=== PATIENT | male | born 2000 | race Caucasian/White ===

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

== ENCOUNTER → 2021-01-20 | Outpatient (CLI) | payer OTHER | END | disposition home or self-care (01) | LOC: RAD 09:27 | PROVIDERS: ATTEND Nurse Practitioner Family | DX: M54.5 Low back pain (principal) ==

== ENCOUNTER 2023-06-05 12:02 | Emergency (ER) | payer OTHER ==
[~2023-06-05] VITALS: Ht 175.2 cm; Wt 77.1 kg
[2023-06-05] MEDS ORDERED: TRAZODONE50 MG PO (12:43)
[2023-06-05] MEDS ORDERED: ESCITALOPRAM OX10 MG PO (12:43)
[2023-06-05] MEDS ORDERED: AMOX-CLAV 875-1 EACH PO (16:22)
== END 2023-06-05 17:01 | disposition home or self-care (01) ==
LOC: ED 12:02
DX: H66.93 Otitis media, unspecified, bilateral (principal); K08.89 Other specified disorders of teeth and supporting structures; J02.9 Acute pharyngitis, unspecified; J45.909 Unspecified asthma, uncomplicated; Z20.822 Contact with and (suspected) exposure to COVID-19; Z88.8 Allergy status to other drugs, medicaments and biological substances; Z87.891 Personal history of nicotine dependence

== ENCOUNTER → 2023-09-06 | Day surgery (SDC) | payer OTHER ==
[~2023-09-06] VITALS: Ht 175.2 cm; Wt 79.4 kg
[~2023-09-06] MED LIST changes: +AMOX-CLAV 500-1 EACH PO; +AMOX-CLAV 875-1 EACH PO; +BUPIVACAINE 0.5% 50 ML VIAL ONE; +ESCITALOPRAM OX10 MG PO; +HYDROCODONE-AC1 EAC1 PO; +HYDROmorphONE Hydrochloride 1 MG/ML SYR IV ONE; +HYDROmorphONE Hydrochloride 1 ML IV ONE; +Lactated Ringer's Solution 1,000 ML IV ONE; +Midazolam Hydrochloride 2 MG/2 ML VIAL IV ONE; +Ondansetron Hydrochloride 4 MG/2 ML VIAL IV ONE; +PROPOFOL 1,000 MG/100 ML VIAL IV ONE; +ROCURONIUM BROMIDE 50 MG/5 ML SYRINGE IV ONE; +SEVOFLURANE 250 ML BOT INH ONE; +TRAZODONE50 MG PO
[2023-09-06 13:02] VITALS: BP 126/67
[2023-09-06 16:20] VITALS: BP 125/57
[2023-09-06 16:35] VITALS: BP 124/65
[2023-09-06 16:50] VITALS: BP 123/64
[2023-09-06 17:05] VITALS: BP 128/71
[2023-09-06 17:20] VITALS: BP 138/73
== END ==
LOC: SDC 09-02 13:15
PROVIDERS: ATTEND Dentist General Practice
DX: K02.9 Dental caries, unspecified (principal); K01.1 Impacted teeth; F41.9 Anxiety disorder, unspecified; J45.909 Unspecified asthma, uncomplicated; F90.9 Attention-deficit hyperactivity disorder, unspecified type; Z87.891 Personal history of nicotine dependence; Z90.89 Acquired absence of other organs

== ENCOUNTER 2025-07-14 00:08 | Emergency (ER) | payer OTHER ==
[~2025-07-14] VITALS: Ht 175.2 cm; Wt 90.7 kg
[~2025-07-14 00:08] MED LIST changes: -BUPIVACAINE 0.5% 50 ML VIAL ONE; -HYDROmorphONE Hydrochloride 1 MG/ML SYR IV ONE; -HYDROmorphONE Hydrochloride 1 ML IV ONE; -Lactated Ringer's Solution 1,000 ML IV ONE; -Midazolam Hydrochloride 2 MG/2 ML VIAL IV ONE; -Ondansetron Hydrochloride 4 MG/2 ML VIAL IV ONE; -PROPOFOL 1,000 MG/100 ML VIAL IV ONE; -ROCURONIUM BROMIDE 50 MG/5 ML SYRINGE IV ONE; -SEVOFLURANE 250 ML BOT INH ONE
[2025-07-14] MEDS ORDERED: Tdap Vaccine 0.5 ML SYR (Adult Vaccine) IM ONE (00:30)
[2025-07-14] MEDS ORDERED: Meloxicam 15 MG TAB PO ONE (00:45)
== END 2025-07-14 00:40 | disposition home or self-care (01) ==
LOC: ED 00:08
DX: S01.01XA Laceration without foreign body of scalp, initial encounter (principal); J45.909 Unspecified asthma, uncomplicated; F90.9 Attention-deficit hyperactivity disorder, unspecified type; W01.0XXA Fall on same level from slipping, tripping and stumbling without subsequent striking against object, initial encounter; Y93.89 Activity, other specified; Y92.89 Other specified places as the place of occurrence of the external cause; Y99.8 Other external cause status